=== PATIENT | female | born 1935 | race Caucasian/White ===

== ENCOUNTER → 2016-07-13 | Outpatient (CLI) | payer MEDICARE ==
[~2016-07-13] MED LIST: ALBUTEROL SULFATE; DITROPAN XL PO; ECOTRIN81 M1 PO; LASIX PO; LASIX20 MG PO; LEVOTHYROXINE50 MCG PO; LIPITOR PO; LISINOPRIL5 MG PO; LOPID600 MG PO; LOZOL PO; MILK OF MAGNESIA PO; MIRALAX17 GM PO; NORCO 5/325 TAB1 TAB PO; OXYGEN; SENNA-DOCUSATE; VITAMIN D22000 UNIT PO
--- NOTE | ~2016-07-13 | MR17 ---
[facility] A Service of [facility] & [facility] RADIOLOGY TEXT RESULTS PATIENT: PARTH HICKS LOCATION: [facility] : 37 UNIT #: [id number] AGE: [address]: Ramu Doe II, MD SEX: F ORDER DR: [id number] [facility] [address] [place], [place] [address] [id number] O MR#: [id number] Acc #: [id number] NAME: PARTH HICKS : 1935 SEX: F STUDY DATE/TIME: 07/13/2016 14:28 UNIT: [facility] ROOM: STUDY DESCRIPTION: MR Brain WWo Contrast Attending Physician: Ramu Doe II., M.D. Ordering Physician: Ramu Doe II., M.D. Primary Care Physician: Augusto Vo M.D. MRI CENTER REPORT This report is preliminary unless electronic signature is present. EXAM MRI of the brain with and without contrast dated 07/13/2016. COMPARISON CT head without contrast dated 12/23/2004. HISTORY Shaking on the left side times 6 months. She was diagnosed with Parkinson disease. Renal carcinoma. Kidney removed 3 years ago. Bladder carcinoma. FINDINGS Multisequence, multiplanar imaging of the brain was obtained with and without contrast. GFR measured 47. 20 mL of MultiHance was administered intravenously. No acute stroke, enhancing intracranial mass, mass effect, midline shift, or hydrocephalus. Postcontrast sequences do not demonstrate enhancing intracranial lesions. Vascular flow voids of the major cerebral arteries and dural venous sinuses are not obstructed completely on these thicker slices. Multiple nonspecific nonenhancing hyperintense T2-signal lesions are scattered in the brain, likely related to moderate chronic microvascular ischemic change or migraine based on age and statistics. Increased T2-signal lesions are noted in the brad but not in the midbrain, particularly in the region of the red nucleus and substantia nigra. There is focal hypointense gradient signal abutting the posterior body of the left lateral ventricle. It could represent punctate tiny hemosiderin deposition from old hemorrhage or calcification. It is not well correlated on the CT head from 12 years ago. Globus pallidus calcifications are noted bilaterally, stable to slightly worse. Punctate hypointense gradient signal is seen in the anteromedial to the atrium of the right lateral ventricle which did demonstrate subtle hyperdensity in the CT head from 12 years ago. IMPRESSION 1. Scattered multiple hyperintense T2-signal lesions are noted in the STS. [facility] A Service of [facility] & [facility] RADIOLOGY TEXT RESULTS PATIENT: PARTH HICKS [facility] UNIT #: [id number] AGE: [address]: Ramu Doe II, MD SEX: F ORDER DR: brain involving the white matter and the brad. They are suggestive of moderate chronic microvascular ischemic change or migraine based on age and statistics. 2. No enhancing intracranial mass or obvious large lesions in the mid brain. 3. Punctate hypointense gradient signal in the lateral aspect of the posterior body of the left lateral ventricle, abutting the ependymal surface could represent punctate calcification or hemosiderin deposition. It is not seen in the prior CT head clearly. The punctate hypointense gradient signal in the anteromedial aspect of the antrum of the right lateral ventricle correlates subtle hyperdensity on CT head and could represent mild calcification. Both these lesions are incidental without any significant edema or enhancing components. Dictated by... Jerardo Brooks M.D. THIS IS AN ELECTRONICALLY VERIFIED REPORT Jerardo Brooks M.D. at 07/15/2016 5:17 PM CPR/tmw TD: 07/15/2016 11:14 JOB #: [id number] MRI CENTER REPORT COPY
[2016-07-13 14:35] LABS: POC - CREATININE 1.18 mg/dL (0.44-1.03)
== END | disposition home or self-care (01) ==
LOC: CMRI 13:21
PROVIDERS: Psychiatry & Neurology Neurology
DX: G20 Parkinson's disease (principal); G93.9 Disorder of brain, unspecified
CPT/HCPCS: 70553; 82565; A9575